=== PATIENT | female | born 1980 | race Caucasian/White ===

== ENCOUNTER 2018-01-09 08:14 | Emergency (ER) | payer SELFPAY ==
[2018-01-09 08:18] VITALS: BP 133/90
--- NOTE | 2018-01-09 08:35 | EDPHY ---
H & P Time Seen by Provider: 01/09/18 08:34 HPI/ROS: Chief complaint. Thumb injury HPI. Patient is a 37-year-old female jammed her right thumb and stool door 1 week ago. She has been wearing a splint that she has purchased. She however has continued pain. She tells me she had bruising and swelling to the base of the thumb. Now it hurts to open her all handle though the bruising and swelling have largely resolved. No previous injury to this area. She is right handed. ROS Constitutional. no fever/chills, no weakness Eyes. no problems with vision ENT. no sore throat, no nasal drainage Cardiovascular. no chest pain Respiratory. no shortness of breath, no cough Abdominal. no abdominal pain, no nausea/vomiting, no diarrhea . no problems urinating MS. Right thumb and hand pain Skin. no rash Lymph. no swollen glands Neuro. no headache, no dizziness, no difficulty walking or with speech Past Medical/Surgical History: Past medical history patient is healthy Social History: , nonsmoker, no alcohol Smoking Status: Former smoker Physical Exam: General Appearance: Alert well-developed female mild distress vital signs are stable Eyes: Pupils equal and round no pallor or injection. ENT, Mouth: Mucous membranes are moist. Respiratory: There are no retractions, lungs are clear to auscultation. Cardiovascular: Regular rate and rhythm. Gastrointestinal: Abdomen is soft and nontender, no masses, bowel sounds normal. Neurological: Awake and alert, sensory and motor exams grossly normal. Skin: Warm and dry, no rashes. Musculoskeletal: Neck is supple nontender. Extremities tenderness and still mild swelling and slight bruising to the thenar eminence. Thumb shows no obvious trauma. IP joint is normal. Some tenderness with stressed to the thumb at the MCP joint but no significant laxity. No tenderness anatomical snuffbox. Distal motor vascular sensitivity intact Psychiatric: Patient is oriented X 3, there is no agitation. Constitutional: Initial Vital Signs Temperature (C) 36.7 C 01/09/18 08:14 Heart Rate 92 01/09/18 08:14 Respiratory Rate 16 01/09/18 08:14 Blood Pressure 133/90 H 01/09/18 08:14 O2 Sat (%) 99 01/09/18 08:14 O2 Delivery Mode Room Air Allergies/Adverse Reactions: No Known Allergies Allergy (Unverified 01/09/18 08:18) Home Medications: Medication Instructions Recorded Hydrocodone/APAP 5/325 [[place] 1 each PO Q4-6PRN PRN #10 tab 01/09/18 5/325 (*)] Medical Decision Making - Diagnostics Imaging Results: X-ray right thumb and hand interpreted by me is negative Procedures: Patient is placed in thumb spica splint. Post splint application shows good anatomical position and distal motor vascular sensitivity to be intact ED Course/Re-evaluation: Re-evaluation at 9:30 a.m.. Patient and I discussed imaging study results, treatment plan including criteria for return importance of follow-up further evaluation. She expresses understanding and agreement. Patient already does have a splint. This is placed and inspected. This is felt to not give adequate support so we make a fiberglass splint for the patient. Differential Diagnosis: I think that this is muscular with possible ligamental injury. I considered fracture and dislocation as well Departure - Departure Disposition: Home, Routine, Self-Care Clinical Impression: Sprain of right thumb Qualifiers: Encounter type: initial encounter Sprain of finger site: metacarpophalangeal joint Qualified Code(s): S63.641A - Sprain of metacarpophalangeal joint of right thumb, initial encounter Condition: Good Instructions: Skier's Thumb (ED) Additional Instructions: Ibuprofen 600 mg every 6 hr for discomfort. Hydrocodone in addition if necessary for pain Splint on for 1 week. For continuing pain and symptoms follow-up with orthopedist Referrals: NONE *PRIMARY CARE P,. [Primary Care Provider] - As per Instructions Eugene Cuello MD [Medical Doctor] - 5-7 days, if not improved Prescriptions: Hydrocodone/APAP 5/325 [[place] 5/325 (*)] 1 each PO Q4-6PRN PRN #10 tab PRN Reason: Pain, Moderate
== END 2018-01-09 10:12 | disposition home or self-care (01) ==
PROC: 2W3GX1Z Immobilization of Right Thumb using Splint (ICD-10-PCS; principal; 2018-01-09)
DX: S63.641A Sprain of metacarpophalangeal joint of right thumb, initial encounter (principal); W22.8XXA Striking against or struck by other objects, initial encounter; Y92.9 Unspecified place or not applicable